=== PATIENT | female | born 1990 | race American Indian/Alaskan Native ===

== ENCOUNTER 2020-08-15 17:19 | Emergency (ER) | payer MEDICAID ==
[2020-08-15 18:11] VITALS: BP 105/61
--- NOTE | 2020-08-15 18:59 | XRay Report ---
RIGHT FOOT AND ANKLE 3 VIEW(S) INDICATION / CLINICAL INFORMATION: tennis injury, right lateral malleolus COMPARISON: None available. FINDINGS: BONES / JOINT(S): No acute fracture or subluxation. No significant arthritis. The ankle mortise is in tact. SOFT TISSUES: Mild soft tissue swelling over the anterolateral ankle. ADDITIONAL FINDINGS: None. Signer Name: Pawan Kasper MD Signed: 08/15/2020 6:54 PM Workstation Name: [id number]
--- NOTE | 2020-08-15 18:59 | XRay Report ---
RIGHT FOOT AND ANKLE 3 VIEW(S) INDICATION / CLINICAL INFORMATION: tennis injury, right lateral malleolus COMPARISON: None available. FINDINGS: BONES / JOINT(S): No acute fracture or subluxation. No significant arthritis. The ankle mortise is in tact. SOFT TISSUES: Mild soft tissue swelling over the anterolateral ankle. ADDITIONAL FINDINGS: None. Signer Name: Pawan Kasper MD Signed: 08/15/2020 6:54 PM Workstation Name: [id number]
--- NOTE | 2020-08-15 19:04 | Emergency Department Report ---
ED Lower Extremity HPI - General Chief Complaint: Extremity Injury, Lower Stated Complaint: POSSIBLE SPRAIN RT ANKLE Time Seen by Provider: 08/15/20 18:09 Source: patient Mode of arrival: Wheelchair Limitations: No Limitations - History of Present Illness Initial Comments: Patient is a 30-year-old female presents emergency room complaints of a right ankle injury that occurred just prior to arrival. She states that she was playing tennis and had a inversion injury of her ankle. She has been ambulatory but it is uncomfortable. She denies any numbness or weakness. She denies ever injuring in the past. No past medical history. No allergies to medications. She is currently on her menstrual cycle. - Related Data Previous Rx's Medication Instructions Recorded Last Taken Type Naproxen [EC-Naprosyn] 375 mg PO BID PRN #14 tablet. 08/15/20 Unknown Rx Allergies Allergy/AdvReac Type Severity Reaction Status Date / Time No Known Allergies Allergy Unverified 08/15/20 17:25 ED Review of Systems ROS: Stated complaint: POSSIBLE SPRAIN RT ANKLE Other details as noted in HPI Comment: All other systems reviewed and negative ED Past Medical Hx - Past Medical History Previous Medical History?: No - Surgical History Past Surgical History?: No - Social History Smoking Status: Never Smoker Substance Use Type: None - Medications Home Medications: Home Medications Medication Instructions Recorded Confirmed Last Taken Type Naproxen [EC-Naprosyn] 375 mg PO BID PRN #14 tablet. 08/15/20 Unknown Rx ED Physical Exam - General Limitations: No Limitations General appearance: alert, in no apparent distress - Head Head exam: Present: atraumatic, normocephalic - Eye Eye exam: Present: normal appearance - ENT ENT exam: Present: mucous membranes moist - Respiratory Respiratory exam: Absent: respiratory distress, accessory muscle use - Extremities Exam Extremities exam: Present: other (edema and ttp to the right lateral ankle overlying the malleolus, no deformity, FROM of the RLE, neurovascularly intact) - Neurological Exam Neurological exam: Present: alert, oriented X3 - Psychiatric Psychiatric exam: Present: normal affect, normal mood - Skin Skin exam: Present: warm, dry, intact ED Course Vital Signs 08/15/20 18:09 Temperature 98.1 F Pulse Rate 89 Respiratory 16 Rate Blood Pressure 105/61 O2 Sat by Pulse 98 Oximetry ED Lower Extremity MDM - Radiology Data Radiology results: report reviewed Ordering Physician: VINICIO CARTER Date of Service: 08/15/20 Procedure(s): XR ankle 3+V RT Accession Number(s): [id number] cc: VINICIO CARTER Fluoro Time In Minutes: RIGHT FOOT AND ANKLE 3 VIEW(S) INDICATION / CLINICAL INFORMATION: tennis injury, right lateral malleolus COMPARISON: None available. FINDINGS: BONES / JOINT(S): No acute fracture or subluxation. No significant arthritis. The ankle mortise is intact. SOFT TISSUES: Mild soft tissue swelling over the anterolateral ankle. ADDITIONAL FINDINGS: None. Signer Name: Marycarmen Dupont MD Signed: 08/15/2020 6:54 PM Workstation Name: [id number] Transcribed By: Dictated By: MARYCARMEN DUPONT Electronically Authenticated By: MARYCARMEN DUPONT Signed Date/Time: 08/15/201853 DD/ 51 TD/TT: Ordering Physician: VINICIO CARTER Date of Service: 08/15/20 Procedure(s): XR foot 3+V RT Accession Number(s): [id number] cc: VINICIO CARTER Fluoro Time In Minutes: RIGHT FOOT AND ANKLE 3 VIEW(S) INDICATION / CLINICAL INFORMATION: tennis injury, right lateral malleolus COMPARISON: None available. FINDINGS: BONES / JOINT(S): No acute fracture or subluxation. No significant arthritis. The ankle mortise is intact. SOFT TISSUES: Mild soft tissue swelling over the anterolateral ankle. ADDITIONAL FINDINGS: None. Signer Name: Marycarmen Dupont MD Signed: 08/15/2020 6:54 PM Workstation Name: [id number] Transcribed By: Dictated By: MARYCARMEN DUPONT Electronically Authenticated By: MARYCARMEN DUPONT Signed Date/Time: 08/15/201853 DD/ 51 TD/TT: - Medical Decision Making Patient is a 30-year-old female presents emergency room complaints of a right ankle injury that occurred just prior to arrival. She states that she was playing tennis and had a inversion injury of her ankle. She has been ambulatory but it is uncomfortable. She denies any numbness or weakness. She denies ever injuring in the past. No past medical history. No allergies to medications. She is currently on her menstrual cycle. vitals are normal. on exam: edema and ttp to the right lateral ankle overlying the malleolus, no deformity, FROM of the RLE, neurovascularly intact. XR right ankle/foot:BONES / JOINT(S): No acute fracture or subluxation. No significant arthritis. The ankle mortise is intact. SOFT TISSUES: Mild soft tissue swelling over the anterolateral ankle. ADDITIONAL FINDINGS: None. Examination appears consistent with ankle sprain. Patient placed in ankle stirrup splint and given crutches by belt conveyor drier and remained neurovascular intact. Patient given prescription for naproxen. Advised patient Please take medication as prescribed as needed. May ice for 15 months at a time, rest, elevate the leg. Please do not bear weight on the leg until you have been cleared by the orthopedic doctor. Follow-up with orthopedic. Return to emergency room for any new or worsening symptoms. - Differential Diagnosis Strain, sprain, fracture, dislocation, contusion, tendinitis Critical care attestation.: If time is entered above; I have spent that time in minutes in the direct care of this critically ill patient, excluding procedure time. ED Disposition Clinical Impression: Right ankle sprain Qualifiers: Encounter type: initial encounter Involved ligament of ankle: unspecified ligament Qualified Code(s): S93.401A - Sprain of unspecified ligament of right ankle, initial encounter Disposition: TO HOME OR SELFCARE Is pt being admited?: No Does the pt Need Aspirin: No Condition: Stable Instructions: Ankle Sprain, [id number] Additional Instructions: Please take medication as prescribed as needed. May ice for 15 months at a time, rest, elevate the leg. Please do not bear weight on the leg until you have been cleared by the orthopedic doctor. Follow-up with orthopedic. Return to emergency room for any new or worsening symptoms. Prescriptions: Naproxen [EC-Naprosyn] 375 mg PO BID PRN #14 tablet.dr AMAYA Reason: pain Referrals: FER LUCIA MD [Staff Physician] - 2-3 Days [facility] [Provider Group] - 2-3 Days Time of Disposition: 19:03 Print Language: DIVEHI
== END 2020-08-15 19:30 | disposition home or self-care (01) ==
LOC: ED 17:19
DX: S93.401A Sprain of unspecified ligament of right ankle, initial encounter (principal); X58.XXXA Exposure to other specified factors, initial encounter; Y93.89 Activity, other specified; Y92.89 Other specified places as the place of occurrence of the external cause; Y99.8 Other external cause status